=== PATIENT | male | born 1950 | race Caucasian/White ===

== ENCOUNTER 2017-11-25 07:04 | Day surgery (SDC) | payer MEDICARE, BC ==
[~2017-11-25 07:04] MED LIST: Lactated Ringers 1,000 ML IV SCH; Sodium Chloride 0.9% 5 ML Syringe FLUSH PRN
[2017-11-25] MEDS ORDERED: Bupivacaine 0.5%/EPINEPHrine 1:200,000 30 ML SDV ONE (07:49)
[2017-11-25] MEDS ORDERED: Lidocaine 1% with EPINEPHrine 1:100,000 20 ML MDV ONE ×2 (07:50→09:09)
[2017-11-25] MEDS ORDERED: Lactated Ringers 1,000 ML ONE ×2 (07:51→08:27)
[2017-11-25] MEDS ORDERED: ceFAZolin 1 GM Vial ONE ×3 (07:52→09:00)
[2017-11-25] MEDS ORDERED: Albuterol/Ipratropium 3.0-0.5 MG/3 ML Neb Soln NEB ONE (08:03)
[2017-11-25] MEDS ORDERED: fentaNYL 250 MCG/5 ML SDV ONE (08:26)
[2017-11-25] MEDS ORDERED: Propofol 200 MG/20 ML SDV ONE (08:27)
[2017-11-25] MEDS ORDERED: Midazolam 1 MG/ML 2 ML SDV ONE (08:27)
[2017-11-25] MEDS ORDERED: Dexamethasone 4 MG/ML SDV ONE (08:27)
[2017-11-25] MEDS ORDERED: Glycopyrrolate 0.2 MG/ML 5 ML MDV IV ONE (08:38)
[2017-11-25] MEDS ORDERED: Rocuronium 50 MG/5 ML Vial IV ONE (08:38)
[2017-11-25] MEDS ORDERED: fentaNYL 250 MCG/5 ML SDV IV ONE (08:38)
[2017-11-25] MEDS ORDERED: Succinylcholine 200 MG/10 ML MDV IV ONE (08:38)
[2017-11-25] MEDS ORDERED: ceFAZolin 1 GM Vial IV ONE (08:38)
[2017-11-25] MEDS ORDERED: Neostigmine Methylsulfate 10 MG/10 ML MDV IV ONE (08:38)
[2017-11-25] MEDS ORDERED: Midazolam 1 MG/ML 2 ML SDV IV ONE (08:38)
[2017-11-25] MEDS ORDERED: Ondansetron 4 MG/2 ML SDV IV ONE (08:38)
[2017-11-25] MEDS ORDERED: Propofol 200 MG/20 ML SDV IV ONE (08:38)
[2017-11-25] MEDS ORDERED: Lactated Ringers 1,000 ML IV ONE (08:38)
[2017-11-25] MEDS ORDERED: Dexamethasone 4 MG/ML SDV IV ONE (08:38)
[2017-11-25] MEDS ORDERED: Sodium Chloride 0.9% 20 ML SDV ONE (09:00)
[2017-11-25] MEDS ORDERED: Lidocaine 1% with EPINEPHrine 1:100,000 20 ML MDV INFILT ONE ×2 (09:00)
[2017-11-25] MEDS ORDERED: Morphine 4 MG/ML Syringe IVPUSH PRN (09:40)
[2017-11-25] MEDS ORDERED: Ondansetron 4 MG/2 ML SDV IVPUSH PRN (09:40)
[2017-11-25] MEDS ORDERED: Morphine 2 MG/ML Syringe IVPUSH PRN ×2 (09:40→12:30)
[2017-11-25] MEDS ORDERED: fentaNYL 100 MCG/2 ML SDV IVPUSH PRN (09:41)
[2017-11-25] MEDS ORDERED: Albuterol 0.083% 2.5 MG/3 ML Neb Soln NEB PRN (09:41)
--- NOTE | 2017-11-25 12:33 | PCM.OPNOTE ---
- General Post-Op/Procedure Note Date of Surgery/Procedure: 11/25/17 Operative Procedure(s): Laparroscopic Cholecystectomy. Findings: Moderately chronically inflamed gallbladder with stones. Pre Op Diagnosis: Chronic cholecystitis and cholelithiasis. Primary Surgeon: Sharmin Whitehead Complications: None Condition: Good Free Text/Narrative:: INFORMED CONSENT: This patient is here today because of chronic cholecystitis and cholelithiasis. The operative procedure is laparoscopic cholecystectomy. The operative procedure and risks were discussed including all possible complications including infection, pain, bleeding, bile duct injury, internal organ injury, conversion to open procedure, reoperation, PE, . Anesthetic complications were handled by [facility]. The patient understands well and wishes to proceed. OPERATION PERFORMED: Laparoscopic cholecystectomy. PROCEDURE: The patient was kept in the supine position and a satisfactory general anesthetic was administered via endotracheal tube. The abdomen was thoroughly prepped and draped in the usual fashion. The supraumbilical fold was infiltrated with 1 mL of Marcaine 0.5% and a curvilinear incision was made. The incision was deepened through the subcutaneous tissue until we came down upon the fascial layer. We then held the fascial layer with two Kenneth clamps and then introduced a Verre's needle directly into the abdominal cavity. The position of the needle was ascertained by the aspiration of a small quantity of air, free flow of saline, negative aspiration of blood. We then instilled CO2 gas into the abdominal cavity and developed an abdominal pressure of approximately 15 mm/Hg. At this point we removed the Verre's needle and reintroduced it over a sheath. This was followed by a 5/12.5 trocar and a camera. Inspection revealed a chronically inflamed gallbladder with some omental adhesions. The omental pad was quite thick. The rest of the abdominal contents were normal to visualization. Two 5 mm trocars were placed in the right hypochondriac region, one in the right midclavicular and the second on the anterior clavicle line and a third 11.5 trocar was inserted in the subxiphoid position under direct vision. The patient was then kept in the reverse Trendelenburg position with a slight tilt to the left side. The two ratchets were placed one on the fundus and one at the neck of the gallbladder. Dissection was begun at the neck of the gallbladder and the fat in this area was quite immense. We carefully dissected out the cystic artery and cystic duct separately and encircled both structures at approximately 1 to 1-1/2 cm. The critical view [place] was clearly obtained. We ligated each structure separately using endo clips. When ligating the cystic duct we made sure not to encroach upon the common duct in any way. We then used a hook cautery and gently dissected the gallbladder off its bed. Because of his chronically adherent nature the entire gallbladder posterior wall could not be removed. The gallbladder fossa and remnant of the posterior wall were gently cauterized for additional hemostasis. The gallbladder with stones was retrieved through the umbilical port via a Endobag. The maddie hepatis was thoroughly irrigated with normal saline, most of which was aspirated out. The abdomen was then slowly deflated and prior to removal of the last trocar we completely deflated the abdomen. The trocar sites were washed with Betadine solution and the fascial layer was closed with 0 Polysorb and the skin was closed using 4.0 Polysorb in a subcuticular fashion. We then instilled approximately 20 mL of Marcaine 0.5% with epinephrine between the four sites. Sterile pressure dressings were applied. The patient tolerated the procedure well. There were no operative complications. Sponge, needle, and instrument count were correct.
[2017-11-25 17:41] VITALS: BP 142/92
== END 2017-11-25 17:35 | disposition home or self-care (01) ==
LOC: KA.SDS 07:04
PROVIDERS: ATTEND Family Medicine
DX: D13.5 Benign neoplasm of extrahepatic bile ducts (principal); K80.10 Calculus of gallbladder with chronic cholecystitis without obstruction; E66.9 Obesity, unspecified; N40.1 Benign prostatic hyperplasia with lower urinary tract symptoms; E78.00 Pure hypercholesterolemia, unspecified; E03.9 Hypothyroidism, unspecified; Z79.899 Other long term (current) drug therapy; Z68.30 Body mass index [BMI] 30.0-30.9, adult; F17.210 Nicotine dependence, cigarettes, uncomplicated
CPT/HCPCS: 47562; 71046; 93005; 94640; J0330; J0690; J1100; J2250; J2270; J2405; J2704; J2710; J3010; J7120; 00790; 88305; J3490

== ENCOUNTER 2023-06-23 18:41 | Emergency (ER) | payer MEDICARE, BC ==
[2023-06-23 18:55] VITALS: BP 181/107; PULSE 63
== END 2023-06-23 19:34 | disposition home or self-care (01) ==
LOC: KA.ED 18:41
DX: S46.912A Strain of unspecified muscle, fascia and tendon at shoulder and upper arm level, left arm, initial encounter (principal); E78.00 Pure hypercholesterolemia, unspecified; E03.9 Hypothyroidism, unspecified; Z79.899 Other long term (current) drug therapy; W18.30XA Fall on same level, unspecified, initial encounter; Y92.009 Unspecified place in unspecified non-institutional (private) residence as the place of occurrence of the external cause
CPT/HCPCS: 73030-LT; 99283